=== PATIENT | male | born 2000 | race Caucasian/White ===

== ENCOUNTER 2021-08-09 10:19 | Emergency (ER) | payer OTHER ==
[2021-08-09 12:21] LABS: SARS-COV-2 RT PCR NEGATIVE (NEGATIVE)
--- NOTE | 2021-08-09 13:31 | ER ---
Nurse's Notes [facility] Name: Toby Mishra Jr Age: 20 yrs Sex: Male : 2000 Arrival Date: 08/09/2021 Time: 10:54 Bed 11 Private MD: Diagnosis: Acute upper respiratory infection, unspecified Presentation: 08/09 10:57 Chief complaint: Patient states: i got like a sore throat \T\ a cough. started yesterday. tw2 i feel like it got worse and started to feel nauseous. i get chest pains when i cough. both of my ears hurt. and now i got a stuffy nose. i took muciniex yesterday. denies fever. Coronavirus screen: cough unrelated to allergies, nausea, runny nose, sore throat, Client presents with at least one sign or symptom that may indicate coronavirus-19. Standard/surgical mask placed on the client. Provider contacted for isolation considerations. Ebola Screen: Patient denies travel to an Ebola-affected area in the 21 days before illness onset. Initial Sepsis Screen: Does the patient meet any 2 criteria? No. Patient's initial sepsis screen is negative. Does the patient have a suspected source of infection? No. Patient's initial sepsis screen is negative. Risk Assessment: Do you want to hurt yourself or someone else? Patient reports no desire to harm self or others. Note provider ERICA Lucero in triage room performing assessment at this time. Onset of symptoms was August 09, 2021. 10:57 Method Of Arrival: Ambulatory tw2 10:57 Acuity: [place] 4 tw2 Triage Assessment: 11:00 General: Appears in no apparent distress. Behavior is calm, cooperative, appropriate tw2 for age. Pain: Denies pain. Respiratory: Reports cough that is non-productive, n/a. Historical: - Allergies: 10:57 No Known Allergies; tw2 - Home Meds: 10:57 None [Active]; tw2 - PMHx: 10:57 None; tw2 - PSHx: 10:57 None; tw2 - Immunization history:: Client reports receiving the 2nd dose of the Covid vaccine. - Social history:: Smoking status: Patient denies any tobacco usage or history of. Screenin:12 Abuse screen: Denies threats or abuse. Denies injuries from another. Nutritional ld1 screening: No deficits noted. Tuberculosis screening: No symptoms or risk factors identified. Fall Risk None identified. Assessment: 12:12 General: Appears in no apparent distress. comfortable, Behavior is calm, cooperative, ld1 appropriate for age. Pain: Denies pain. Neuro: Level of Consciousness is awake, alert, obeys commands, Oriented to person, place, time, situation, Appropriate for age. Cardiovascular: Capillary refill < 3 seconds Patient's skin is warm and dry. Respiratory: Airway is patent Respiratory effort is even, unlabored, Respiratory pattern is regular, symmetrical. GI: Abdomen is flat, non-distended. : No signs and/or symptoms were reported regarding the genitourinary system. EENT: Reports throat soreness, congestion.. Derm: No signs and/or symptoms reported regarding the dermatologic system. Musculoskeletal: No signs and/or symptoms reported regarding the musculoskeletal system. 13:29 Reassessment: Patient appears in no apparent distress at this time. No changes from ld1 previously documented assessment. Patient and/or family updated on plan of care and expected duration. Pain level reassessed. Patient is alert, oriented x 3, equal unlabored respirations, skin warm/dry/pink. Vital Signs: 10:57 BP 114 / 61; Pulse 99; Resp 18; Temp 98.6(TE); Pulse Ox 100% on R/A; Weight 93.44 kg tw2 (R); Height 5 ft. 7 in. (170.18 cm); 12:12 BP 119 / 70; Pulse 89; Resp 18; Pulse Ox 100% on R/A; Pain 0/10; ld1 13:29 BP 119 / 69; Pulse 82; Resp 18; Pulse Ox 100% on R/A; Pain 0/10; ld1 10:57 Body Mass Index 32.26 (93.44 kg, 170.18 cm) tw2 ED Course: 10:54 Patient arrived in ED. as 10:57 Arm band placed on. tw2 10:59 [facility]C [facility] kb 10:59 Carlton Hilliard MD is Attending Physician. kb 11:00 Triage completed. tw2 12:12 Patient has correct armband on for positive identification. Bed in low position. Call ld1 light in reach. Side rails up X2. Pulse ox on. NIBP on. Door closed. Noise minimized. Warm blanket given. 12:12 No provider procedures requiring assistance completed. ld1 13:39 Patient did not have IV access during this emergency room visit. ld1 Administered Medications: No medications were administered Outcome: 13:31 Discharge ordered by . edwin 13:38 Discharged to home ambulatory. ld1 13:38 Condition: stable 13:38 Discharge instructions given to patient, Instructed on discharge instructions, follow up and referral plans. Demonstrated understanding of instructions, follow-up care. 13:39 Patient left the ED. ld1 Signatures: Hawa Mendez, FAGOTING MACHINE OPERATOR-C FAGOTING MACHINE OPERATOR-Klaudia Urban Tara RN RN tw2 Racheal Barriga, RN RN ld1
--- NOTE | 2021-08-09 13:31 | EDPHYS ---
Physician Documentation [facility] Name: Toby Mishra Jr Age: 20 yrs Sex: Male : 2000 Arrival Date: 08/09/2021 Time: 10:54 Bed 11 Private MD: ED Physician Carlton Hilliard HPI: 08/09 16:47 This 20 yrs old Male presents to ER via Ambulatory with complaints of Cough, kb Congestion, Sore Throat. 16:47 The patient or guardian reports cough, that is intermittent, described as mild, flu kb symptoms, myalgias. Onset: The symptoms/episode began/occurred yesterday. Severity of symptoms: At their worst the symptoms were moderate, in the emergency department the symptoms are unchanged. Modifying factors: The symptoms are alleviated by nothing, the symptoms are aggravated by nothing. Associated signs and symptoms: Pertinent positives: sore throat. The patient has not experienced similar symptoms in the past. The patient has not recently seen a physician. Patient reports sore throat, cough, malaise, congestion, nausea, bilateral ear pain since yesterday.. Historical: - Allergies: 10:57 No Known Allergies; tw2 - Home Meds: 10:57 None [Active]; tw2 - PMHx: 10:57 None; tw2 - PSHx: 10:57 None; tw2 - Immunization history:: Client reports receiving the 2nd dose of the Covid vaccine. - Social history:: Smoking status: Patient denies any tobacco usage or history of. ROS: 16:48 Cardiovascular: Negative for chest pain, palpitations, and edema. kb 16:48 Constitutional: Positive for malaise. 16:48 ENT: Positive for sinus congestion, sore throat. 16:48 Respiratory: Positive for cough, Negative for dyspnea on exertion, hemoptysis, orthopnea, pleurisy, shortness of breath, sputum production, wheezing. 16:48 Abdomen/GI: Positive for nausea. 16:48 All other systems are negative. Exam: 16:48 Constitutional: This is a well developed, well nourished patient who is awake, alert, kb and in no acute distress. Head/Face: Normocephalic, atraumatic. ENT: Moist Mucous membranes Cardiovascular: Regular rate and rhythm with a normal S1 and S2. No gallops, murmurs, or rubs. No pulse deficits. Respiratory: Respirations even and unlabored. No increased work of breathing, no retractions or nasal flaring. Skin: Warm, dry with normal turgor. Normal color. MS/ Extremity: Pulses equal, no cyanosis. Neurovascular intact. Full, normal range of motion. Neuro: Awake and alert, GCS 15, oriented to person, place, time, and situation. Moves all extremities. Normal gait. Psych: Awake, alert, with orientation to person, place and time. Behavior, mood, and affect are within normal limits. Vital Signs: 10:57 BP 114 / 61; Pulse 99; Resp 18; Temp 98.6(TE); Pulse Ox 100% on R/A; Weight 93.44 kg tw2 (R); Height 5 ft. 7 in. (170.18 cm); 12:12 BP 119 / 70; Pulse 89; Resp 18; Pulse Ox 100% on R/A; Pain 0/10; ld1 13:29 BP 119 / 69; Pulse 82; Resp 18; Pulse Ox 100% on R/A; Pain 0/10; ld1 10:57 Body Mass Index 32.26 (93.44 kg, 170.18 cm) tw2 MDM: 11:01 Patient medically screened. kb 16:47 Data reviewed: vital signs, nurses notes. Data interpreted: Pulse oximetry: on room air kb is 100 %. Interpretation: normal. Counseling: I had a detailed discussion with the patient and/or guardian regarding: the historical points, exam findings, and any diagnostic results supporting the discharge/admit diagnosis, lab results, the need for outpatient follow up, a family practitioner, to return to the emergency department if symptoms worsen or persist or if there are any questions or concerns that arise at home. 08/09 11:02 Order name: Flu kb 08/09 11:02 Order name: COVID-19 : Document "Date of Symptom Onset" if Symptomatic. kb 08/09 11:02 Order name: Strep kb 08/09 11:02 Order name: Group A Streptococcus Rapid Sc; Complete Time: 11:47 EDMS 08/09 11:48 Order name: Throat Culture EDMS 08/09 12:21 Order name: COVID-19/FLU A+B; Complete Time: 12:21 EDMS Administered Medications: No medications were administered Disposition: 08/10 04:44 Co-signature as Attending Physician, Carlton Hilliard MD I agree with the assessment and kdr plan of care. Chart complete. Disposition Summary: 08/09/21 13:31 Discharge Ordered Location: Home kb Condition: Stable kb Diagnosis - Acute upper respiratory infection, unspecified kb Followup: kb - With: Emergency Department - When: As needed - Reason: Worsening of condition Followup: kb - With: Private Physician - When: 2 - 3 days - Reason: Recheck today's complaints, Continuance of care, Re-evaluation by your physician Discharge Instructions: - Upper Respiratory Infection, Adult, [id number] kb - Viral Respiratory Infection, [id number] kb - Discharge Summary Sheet tw2 Forms: - Medication Reconciliation Form kb - Thank You Letter kb - Antibiotic Education kb - Work release form tw2 - Prescription Opioid Use kb Signatures: Dispatcher [employer] EDMS Hawa Mendez, MELLC ERICA-Carlton Fuentes MD MD kdr Catia Souza RN RN tw2 Corrections: (The following items were deleted from the chart) 08/09 11:42 11:02 Influenza Screen (A ordered. EDMS EDMS 11:42 11:02 CORONAVIRUS ordered. EDRI EDMS
[2021-08-09 13:44] VITALS: TEMP 98.6; O2SAT 100
[2021-08-09 13:47] VITALS: BP 119/69
== END 2021-08-09 13:39 | disposition home or self-care (01) ==
LOC: ER 10:19
DX: J06.9 Acute upper respiratory infection, unspecified (principal); Z20.822 Contact with and (suspected) exposure to COVID-19
CPT/HCPCS: 87070; 87081; 0240U; 99283